=== PATIENT | female | born 1965 | race Caucasian/White ===

== ENCOUNTER 2018-01-13 14:24 | Emergency (ER) | payer BC ==
[2018-01-13 14:45] VITALS: BP 140/91
--- NOTE | 2018-01-13 14:52 | UC ---
Skin Complaint HPI - HPI Summary HPI Summary: Patient presents stating approximately one week ago she stepped on a nail. Patient was wearing sneakers. Patient states it "scratched" the bottom of her foot. Patient states she did not have to forcibly remove the nail. It was not stuck when she took her shoe off. Patient states she washed with soap, water and peroxide. Patient states up until 2 days ago she was covering it with antibiotic ointment and Band-Aid. Patient states she realizes that her tetanus is out-of-date and she has no PCP. Patient states she became worried after someone mentioned she get a tetanus booster so she came here for this today. Patient has any fevers or chills. No pain. No foot swelling. no erythema. No drainage. Hasn't taken any analgesia. Patient is not immunocompromised. No h/o reaction to vaccinations. Patient's medications reviewed this visit. - History of Current Complaint Chief Complaint: UCSkin Time Seen by Provider: 01/13/18 14:46 Stated Complaint: STEPPED ON NAIL/LT FOOT Hx Obtained From: Patient Hx Last Menstrual Period: unknown ?: No Onset/Duration: Sudden Onset Skin Exposure Onset/Duration: Days Ago Onset Severity: Mild Current Severity: None Pain Intensity: 0 Pain Scale Used: 0-10 Numeric Location: Discrete - Allergy/Home Medications Allergies/Adverse Reactions: Allergies Allergy/AdvReac Type Severity Reaction Status Date / Time codeine Allergy GI Upset Verified 01/13/18 14:41 Review of Systems Constitutional: Negative Skin: Other - puncture wound All Other Systems Reviewed And Are Negative: Yes PMH/Surg Hx/FS Hx/Imm Hx Previously Healthy: Yes - Surgical History Surgical History: Yes Surgery Procedure, Year, and Place: 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 EYE SURGERY A [facility]ABY - Family History Known Family History: Positive: Hypertension - Social History Occupation: Employed Full-time Lives: With Family Alcohol Use: Rare Substance Use Type: None Smoking Status (MU): Never Smoked Tobacco - Immunization History Most Recent Tetanus Shot: UNKNOWN Physical Exam - Summary Physical Exam Summary: Vital Signs Reviewed: Yes A+Ox3, no distress Eyes: Conjunctiva Clear ENT: Hearing grossly normal neck: supple Respiratory: Positive: No respiratory distress, No accessory muscle use Cardiovascular: skin color reflect adequate perfusion 2+ DP CBT <2 sec Musculoskeletal Exam: + flex/ext knee, ankle, great toe ambulatory without difficulty Neurological: Positive: Alert, ambulatory without difficulty Psychological: Positive: Normal Response To Family Skin: Positive: no rash, no ecchymosis Pt with a small, scabbed (1mm) puncture wound left foot No erythema, edema drainage, exudate, fluctuance Triage Information Reviewed: Yes Vital Signs: Initial Vital Signs Temp 98.9 F 01/13/18 14:37 Pulse 68 01/13/18 14:37 Resp 15 01/13/18 14:37 BP 140/91 01/13/18 14:37 Pulse Ox 100 01/13/18 14:37 Course/Dx - Course Course Of Treatment: Patient presents after sustaining a puncture wound to her left foot approximately 8 days ago. Wound clean dry and intact. No concern for infection. No discomfort. Patient needs a tetanus vaccine. We'll prescribe tenderness. Discussed with patient immunization wrist. Patient alert includes pertussis. Patient without previous reaction to egg products or immunizations. We'll give tetanus. We'll refer to the physician referral center. Motrin Tylenol. Continue with wound care. Patient comfortable in agreement with plan. Return precautions discussed - Diagnoses Provider Diagnoses: puncture wound. tdap booster Discharge - Sign-Out/Discharge Documenting (check all that apply): Patient Departure - Discharge Plan Condition: Stable Disposition: HOME Patient Education Materials: Diphtheria/Acellular Pertussis/Tetanus Booster Vaccine (By injection), Puncture Wound (ED) Referrals: [facility] [Outside] No Primary Care Phys,NOPCP [Primary Care Provider] - Additional Instructions: - You received a tetanus vaccination today here are normal likely be sore over the next 1-2 days. This is normal. Okay to alternate ibuprofen (Motrin, Advil ) and Tylenol for discomfort. - Year wound is looking healthy at today's visit. There is no sign or concern of infection. Atraumatic recommended to continue to wash it with warm soapy water 2 times a day.-pack-year wound dry. Cover with a thin layer of antibiotic and Band-Aid. If you develop pain, redness, drainage, fever, swelling, or any other concern is recommended to return here in the emergency department for further evaluation - You having given the phone number for the physician referral center. This office can assist with establishing with a primary care provider. - Billing Disposition and Condition Condition: STABLE Disposition: Home
[2018-01-13] MEDS ORDERED: Tetan/Diph/Pertus SYR(Tdap)* 0.5 ML SYR(BOOSTRIX) use SYR IM ONE (14:59)
== END 2018-01-13 15:11 | disposition home or self-care (01) ==
LOC: UCCORT 14:24
DX: S91.332A Puncture wound without foreign body, left foot, initial encounter (principal); W22.8XXA Striking against or struck by other objects, initial encounter; Y92.9 Unspecified place or not applicable; Z88.5 Allergy status to narcotic agent
CPT/HCPCS: 90471; 90715; 99201; G0463